=== PATIENT | female | born 1985 | race Hispanic/Latino ===

== ENCOUNTER 2018-11-22 22:22 | Emergency (ER) | payer OTHER | END 2018-11-23 00:43 | disposition home or self-care (01) | LOC: EDH 22:22 | DX: O20.9 Hemorrhage in early pregnancy, unspecified (principal); E11.9 Type 2 diabetes mellitus without complications; Z3A.09 9 weeks gestation of pregnancy; Z98.890 Other specified postprocedural states; Z79.84 Long term (current) use of oral hypoglycemic drugs | CPT/HCPCS: 76801; 76802 ==

== ENCOUNTER 2019-05-30 11:30 | Observation (INO) | payer BC ==
[~2019-05-30] VITALS: Ht 157.5 cm; Wt 102.5 kg
[2019-05-30 12:23] LABS: APPEARANCE,URINE Clear (CLEAR); BILIRUBIN,URINE Small (NEGATIVE); COLOR,URINE Dark Yellow (YELLOW); GLUCOSE, URINE (UA) Negative (NEGATIVE); KETONES,URINE Negative (NEGATIVE); LEUKOCYTE ESTERASE ,URINE Trace (NEGATIVE); NITRATE,URINE Negative (NEGATIVE); OCCULT BLOOD,URINE Negative (NEGATIVE); PROTEIN,URINE POS 1+ mg/dL (NEGATIVE)
[2019-05-30 12:39] LABS: BACTERIA,URINE Rare /HPF (None Seen); MUCUS,URINE Few LPF (None Seen); RBC,URINE 0-1 /HPF (0-1); SQUAMOUS EPITHELIAL CELL,UR Rare /HPF (0-2); WBC,URINE 0-1 /HPF (0-1)
[2019-05-30 12:41] LABS: BASOPHILS % (AUTO) 0.9 % (0.0-5.0); EOSINOPHILS % (AUTO) 0.8 % (0.0-8.0); HEMATOCRIT 39.1 % (36-48); LYMPHOCYTES % (AUTO) 20.5 % (21.0-51.0); MEAN CORPUSCULAR HEMOGLOBIN 31.7 pg (27.0-33.0); MEAN CORPUSCULAR HGB CONC 35.6 g/dL (32.0-36.0); MEAN CORPUSCULAR VOLUME 89.1 fL (79-99); NEUTROPHILS % (AUTO) 73.8 % (40.0-77.0); PLATELET COUNT (AUTO) 212 K/uL (130-400); RED BLOOD CELL COUNT(AUTO) 4.39 MIL/uL (4.00-5.50); RED CELL DISTRIBUTION WIDTH 13.8 % (11.0-15.5); WHITE BLOOD COUNT (AUTO) 9.6 K/uL (4.8-10.8)
[2019-05-30 12:55] LABS: CREATININE 0.6 mg/dL (0.5-1.5)
[2019-05-30 12:59] LABS: ALBUMIN 2.3 g/dL (3.5-5.0); BILIRUBIN,TOTAL 0.5 mg/dL (0.2-1.0); TOTAL PROTEIN, SERUM 6.5 g/dL (6.0-8.3); URIC ACID 7.5 mg/dL (2.6-7.2)
[2019-05-30 13:00] LABS: INR 0.86 (0.85-1.15); PROTHROMBIN TIME 9.1 SEC (9.6-11.6)
[2019-05-31 07:14] LABS: HEPATITIS Bs ANTIGEN SCREEN P Negative (Negative)
== END 2019-05-30 14:26 | disposition home or self-care (01) ==
LOC: LDH 11:30
PROVIDERS: ADMIT Obstetrics & Gynecology; ATTEND Obstetrics & Gynecology
DX: O26.893 Other specified pregnancy related conditions, third trimester (principal); R03.0 Elevated blood-pressure reading, without diagnosis of hypertension; O99.013 Anemia complicating pregnancy, third trimester; O09.813 Supervision of pregnancy resulting from assisted reproductive technology, third trimester; Z3A.35 35 weeks gestation of pregnancy
CPT/HCPCS: 36415; 80053; 81001; 84550; 85025; 85027; 85384; 85610; 85730; 86592; 86850; 86900; 86901; 87340; G0378 ×2

== ENCOUNTER 2019-06-02 11:43 | Inpatient (IN) | payer BC ==
[~2019-06-02] VITALS: Ht 157.5 cm; Wt 102.5 kg
[2019-06-02 13:22] LABS: BASOPHILS % (AUTO) 0.7 % (0.0-5.0); EOSINOPHILS % (AUTO) 0.3 % (0.0-8.0); HEMATOCRIT 41.6 % (36-48); MEAN CORPUSCULAR HEMOGLOBIN 31.7 pg (27.0-33.0); MEAN CORPUSCULAR HGB CONC 35.4 g/dL (32.0-36.0); MEAN CORPUSCULAR VOLUME 89.6 fL (79-99); MONOCYTES % (AUTO) 3.9 % (3.0-13.0); NEUTROPHILS % (AUTO) 70.1 % (40.0-77.0); PLATELET COUNT (AUTO) 205 K/uL (130-400); RED BLOOD CELL COUNT(AUTO) 4.64 MIL/uL (4.00-5.50); WHITE BLOOD COUNT (AUTO) 9.9 K/uL (4.8-10.8)
[2019-06-02 13:32] LABS: APPEARANCE,URINE Clear (CLEAR); BILIRUBIN,URINE Negative (NEGATIVE); COLOR,URINE Yellow (YELLOW); GLUCOSE, URINE (UA) Negative (NEGATIVE); KETONES,URINE Negative (NEGATIVE); LEUKOCYTE ESTERASE ,URINE Negative (NEGATIVE); NITRATE,URINE Negative (NEGATIVE); OCCULT BLOOD,URINE Negative (NEGATIVE); PH,URINE 5.5 (5.0-8.0); PROTEIN,URINE Trace mg/dL (NEGATIVE)
[2019-06-02 13:33] LABS: CREATININE 0.7 mg/dL (0.5-1.5); POTASSIUM 3.7 mmol/L (3.5-5.1)
[2019-06-02 13:37] LABS: ALBUMIN 2.5 g/dL (3.5-5.0); BILIRUBIN,TOTAL 0.5 mg/dL (0.2-1.0); TOTAL PROTEIN, SERUM 6.8 g/dL (6.0-8.3); URIC ACID 7.7 mg/dL (2.6-7.2)
[2019-06-02 13:45] LABS: INR 0.87 (0.85-1.15); PARTIAL THROMBOPLASTIN TIME 25.9 SEC (26.3-35.5); PROTHROMBIN TIME 9.2 SEC (9.6-11.6)
[2019-06-02] MEDS ORDERED: PHARMACY COMMUNICATION MISC SCH (13:45)
[2019-06-02 13:46] LABS: BACTERIA,URINE Few /HPF (None Seen); RBC,URINE None Seen /HPF (0-1); WBC,URINE None Seen /HPF (0-1)
[2019-06-02 13:47] LABS: MUCUS,URINE Many LPF (None Seen)
[2019-06-02] MEDS: CELESTONE SOLUSPAN 6 MG/ML 5ML VIAL IM SCH (14:36)
[2019-06-02] MEDS: LACTATED RINGERS 1000ML 1,000 ML IV PRN (14:36)
[2019-06-02 20:04] VITALS: BP 138/79
[2019-06-03] MEDS: LACTATED RINGERS 1000ML 1,000 ML IV PRN ×2 (00:34→21:39)
[2019-06-03] MEDS: CELESTONE SOLUSPAN 6 MG/ML 5ML VIAL IM SCH (02:41)
[2019-06-03 06:10] LABS: HEPATITIS Bs ANTIGEN SCREEN P Negative (Negative)
[2019-06-03] MEDS ORDERED: CALDOLOR 800MG+NS 250ML 250 ML IV PRN (08:00)
[2019-06-03] MEDS ORDERED: CEFAZOLIN SODIUM 1 GM VIAL IVP PRN (08:00)
[2019-06-03] MEDS ORDERED: ONDANSETRON HCL 4 MG/2 ML VIAL ONE (09:43)
[2019-06-03] MEDS ORDERED: DEXAMETHASONE SOD PHOSPHATE 10MG/ML 1ML VIAL ONE (09:43)
[2019-06-03] MEDS ORDERED: OXYTOCIN 10 USP UNITS/ML ONE (09:44)
[2019-06-03] MEDS ORDERED: EPHEDRINE SULFATE 50 MG/ML AMPULE ONE (09:44)
[2019-06-03] MEDS ORDERED: DURAMORPH PF1 MG/ML 10ML AMP IV ONE (09:44)
[2019-06-03] MEDS ORDERED: CEFAZOLIN SODIUM 1 GM VIAL IVP ONE (10:10)
[2019-06-03] MEDS ORDERED: LANOLIN 30GM OINTMENT TP PRN (11:00)
[2019-06-03] MEDS ORDERED: ACETAMINOPHEN EXTRA STRENGTH 500 MG TABLET PO PRN (11:00)
[2019-06-03] MEDS ORDERED: PROMETHAZINE HCL 25 MG/ML 1ML AMPULE IM PRN (11:00)
[2019-06-03] MEDS ORDERED: BISACODYL 10 MG SUPP.RECT RC PRN (11:00)
[2019-06-03] MEDS ORDERED: DEXTROSE 5 %-0.45 % NACL 1,000 ML IV PRN (11:00)
[2019-06-03] MEDS ORDERED: OXYTOCIN-LR 20 UNITS/1000 ML 1,000 ML IV PRN (11:00)
[2019-06-03 12:38] VITALS: BP 150/84
[2019-06-03] MEDS ORDERED: ONDANSETRON HCL 4 MG/2 ML VIAL IVP PRN (14:15)
[2019-06-03] MEDS ORDERED: DiphenhydrAMINE HCL 50 MG/ML VIAL IVP PRN (14:15)
[2019-06-03] MEDS ORDERED: NALOXONE HCL 0.4 MG/1 ML ML IVP PRN ×3 (14:15)
[2019-06-03] MEDS ORDERED: METF-444 PO (14:57)
--- NOTE | 2019-06-03 17:00 | NUR ---
SPOKE WITH DR. HOLLAND TO REPORT BP OF 146/101. STATES TO NOTIFY HIM IF DIASTOLIC IS ABOVE 160 AND SYSTOLIC ABOVE 110.
[2019-06-03 17:02] VITALS: BP 146/101
[2019-06-03] MEDS: INSULIN HUMULIN R 100 UNIT/ML 3ML SQ SCH ×3 (17:11→21:36)
[2019-06-03 19:20] VITALS: BP 133/72
[2019-06-03] MEDS: DOCUSATE SODIUM 100 MG CAP PO SCH (21:38)
[2019-06-03 23:10] VITALS: BP 121/67
[2019-06-04 03:34] VITALS: BP 103/49
[2019-06-04] MEDS: LACTATED RINGERS 1000ML 1,000 ML IV PRN (05:48)
[2019-06-04 06:50] LABS: HEMATOCRIT 33.4 % (36-48); MEAN CORPUSCULAR HEMOGLOBIN 31.4 pg (27.0-33.0); MEAN CORPUSCULAR HGB CONC 34.7 g/dL (32.0-36.0); MEAN CORPUSCULAR VOLUME 90.6 fL (79-99); NUCLEATED RED BLOOD CELLS 0.1 % (0.0-0.19); PLATELET COUNT (AUTO) 184 K/uL (130-400); RED BLOOD CELL COUNT(AUTO) 3.69 MIL/uL (4.00-5.50); RED CELL DISTRIBUTION WIDTH 14.2 % (11.0-15.5); WHITE BLOOD COUNT (AUTO) 16.9 K/uL (4.8-10.8)
[2019-06-04] MEDS: INSULIN HUMULIN R 100 UNIT/ML 3ML SQ SCH ×2 (06:57→21:30)
[2019-06-04] MEDS ORDERED: FLU VACC QS2019-20 36MOS UP/PF 60 MCG/0.5 ML ML IM ONE (08:00)
[2019-06-04] MEDS ORDERED: ACETAMINOPHEN-CODEINE 300/30MG TAB PO PRN (08:00)
[2019-06-04] MEDS ORDERED: HYDROCODONE/ACETAMINOPHEN 5/325 MG TAB PO PRN (08:00)
[2019-06-04 08:08] VITALS: BP 106/67
[2019-06-04] MEDS: DOCUSATE SODIUM 100 MG CAP PO SCH ×2 (08:23→21:15)
[2019-06-04] MEDS: IBUPROFEN 600 MG TABLET PO PRN ×2 (08:24→15:41)
[2019-06-04] MEDS: SIMETHICONE 80 MG TAB.CHEW PO PRN ×3 (08:24→21:15)
--- NOTE | 2019-06-04 08:30 | NUR ---
MICHAELS CATHETER REMOVED WITH TIP INTACT. PERICARE GIVEN. ABDOMINAL BINDER APPLIED. ASSISTED PATIENT OOB TO CHAIR AT BEDSIDE. NO PAIN REPORTED AT THIS TIME.
[2019-06-04] MEDS ORDERED: FLU VACC QS2019-20 36MOS UP/PF 60 MCG/0.5 ML ML IM SCH (09:00)
[2019-06-04 11:56] VITALS: BP 124/71
[2019-06-04 16:26] VITALS: BP 126/67
[2019-06-04] MEDS: DIPH,PERTUSS(ACELL),TET VAC/PF 0.5 ML VIAL IM SCH (19:03)
[2019-06-04 19:26] VITALS: BP 132/73
[2019-06-04 23:37] VITALS: BP 135/73
[2019-06-05] MEDS: IBUPROFEN 600 MG TABLET PO PRN ×2 (00:04→09:01)
[2019-06-05 03:24] VITALS: BP 143/72
[2019-06-05] MEDS: INSULIN HUMULIN R 100 UNIT/ML 3ML SQ SCH ×2 (07:30→11:43)
[2019-06-05 07:56] VITALS: BP 131/59
[2019-06-05] MEDS: DIPH,PERTUSS(ACELL),TET VAC/PF 0.5 ML VIAL IM SCH (08:00)
[2019-06-05] MEDS: SIMETHICONE 80 MG TAB.CHEW PO PRN (08:59)
[2019-06-05] MEDS: DOCUSATE SODIUM 100 MG CAP PO SCH (08:59)
[2019-06-05 11:28] VITALS: BP 135/72
--- NOTE | 2019-06-05 13:20 | NUR ---
DISCHARGE PATIENT LEFT UNIT VIA WHEELCHAIR WITH BABIES IN HAND. PERSONAL VEHICLE USED FOR TRANSPORTATION. BABIES SECURE IN CARSEATS. NO COMPLAINTS OR CONCERNS ADDRESSED FROM PATIENT ON DISCHARGE.
== END 2019-06-05 13:20 | disposition home or self-care (01) | DRG 786 ==
LOC: UNDOADMIN 11:43 → OBSVTOIN 11:43 → INTOOBSV 11:43 → LDH 11:43 → WSH 06-03 12:35
PROVIDERS: ADMIT Obstetrics & Gynecology; ATTEND Obstetrics & Gynecology
PROC: 10D00Z1 Extraction of Products of Conception, Low, Open Approach (ICD-10-PCS; principal; 2019-06-03 09:00)
PROC: 3E02340 Introduction of Influenza Vaccine into Muscle, Percutaneous Approach (ICD-10-PCS; 2019-06-04)
PROC: 3E0234Z Introduction of Serum, Toxoid and Vaccine into Muscle, Percutaneous Approach (ICD-10-PCS; 2019-06-04)
DX: O30.043 Twin pregnancy, dichorionic/diamniotic, third trimester (principal); O24.12 Pre-existing type 2 diabetes mellitus, in childbirth; E11.9 Type 2 diabetes mellitus without complications; O99.214 Obesity complicating childbirth; O99.89 Other specified diseases and conditions complicating pregnancy, childbirth and the puerperium; N73.6 Female pelvic peritoneal adhesions (postinfective); O34.211 Maternal care for low transverse scar from previous cesarean delivery; Z3A.35 35 weeks gestation of pregnancy; Z37.2 Twins, both liveborn; Z79.4 Long term (current) use of insulin; Z82.49 Family history of ischemic heart disease and other diseases of the circulatory system; Z83.3 Family history of diabetes mellitus; Z90.49 Acquired absence of other specified parts of digestive tract; Z23 Encounter for immunization
CPT/HCPCS: 36415; 59510; 80053; 81001; 82948; 84550; 85025; 85027; 85384; 85610; 85730; 86592; 86850; 86900; 86901; 87340; 90715; A4344; A4606; G0008; G0378; J0690; J0702; J1100; J1200; J1741; J1815; J2274; J2405; J2590; J3490; J7120